=== PATIENT | male | born 1995 | race African-American/Black ===

== ENCOUNTER 2020-07-01 20:33 | Emergency (ER) | payer MEDICAID ==
[~2020-07-01] VITALS: Ht 177.8 cm; Wt 81.8 kg
[2020-07-01 21:35] VITALS: Ht 177.8 cm; Wt 81.8 kg
[2020-07-02] MEDS ORDERED: DICLOFENAC SODI50 MG PO (00:06)
[2020-07-02 01:10] VITALS: BP 129/84
== END 2020-07-02 01:10 | disposition home or self-care (01) ==
LOC: D.ER 20:33
DX: S60.221A Contusion of right hand, initial encounter (principal); W22.8XXA Striking against or struck by other objects, initial encounter; Y93.9 Activity, unspecified; Y92.9 Unspecified place or not applicable